=== PATIENT | male | born 1955 | race Caucasian/White ===

== ENCOUNTER 2017-07-22 00:52 | Emergency (ER) | payer MEDICAID ==
[2017-07-22] MEDS ORDERED: Ibuprofen 600 MG Tab PO ONE (01:13)
[2017-07-22] MEDS ORDERED: Iopamidol 755 Mg/ML 75 ML Bottle IV ONE (01:45)
--- NOTE | 2017-07-22 03:38 | EDM.PDOC ---
ED HPI GENERAL MEDICAL PROBLEM - General Chief Complaint: Back Pain or Injury Stated Complaint: MED BACK PAIN Time Seen by Provider: 07/22/17 00:52 Source of Information: Reports: Patient History Limitations: Reports: No Limitations - History of Present Illness INITIAL COMMENTS - FREE TEXT/NARRATIVE: 62 years old w m in prev healthy condition came to the due to sudden onset of pain at his right post lower chest wall. worse with deep inspiration, no trauma , no blood in urine, no N/V/D or dizziness. No other acute medical issues at this time. Onset: Today Onset Date: 07/21/17 Onset Time: 15:00 Duration: Hour(s):, Intermittent Location: Reports: Chest (right post chest) Quality: Reports: Ache, Burning, Dull Severity: Moderate Improves with: Reports: Rest Worsens with: Reports: Movement back Pain Score (Numeric/FACES): 3 - Related Data Allergies Allergy/AdvReac Type Severity Reaction Status Date / Time No Known Allergies Allergy Verified 07/22/17 01:10 Home Meds: Home Meds traMADol [Ultram] 50 mg PO Q6H PRN #15 tab 07/22/17 [Rx] Social & Family History - Tobacco Use Smoking Status *Q: Never Smoker - Recreational Drug Use Recreational Drug Use: No ED ROS GENERAL - Review of Systems Review Of Systems: See Below Constitutional: Reports: No Symptoms HEENT: Reports: No Symptoms Respiratory: Reports: No Symptoms Cardiovascular: Reports: No Symptoms Endocrine: Reports: No Symptoms GI/Abdominal: Reports: No Symptoms : Reports: No Symptoms Musculoskeletal: Reports: Back Pain Skin: Reports: No Symptoms Neurological: Reports: No Symptoms Psychiatric: Reports: No Symptoms Hematologic/Lymphatic: Reports: No Symptoms Immunologic: Reports: No Symptoms ED EXAM,LOWER BACK PAIN/INJURY - Physical Exam Exam: See Below Exam Limited By: No Limitations General Appearance: Alert, WD/WN, Mild Distress, Obese Eye Exam: Bilateral Eye: Normal Inspection Ears: Normal External Exam Nose: Normal Inspection Throat/Mouth: Normal Inspection Head: Atraumatic, Normocephalic Neck: Normal Inspection, Supple Respiratory/Chest: No Respiratory Distress, Lungs Clear, Normal Breath Sounds Cardiovascular: Normal Peripheral Pulses, Regular Rate, Rhythm GI/Abdominal: Normal Bowel Sounds (Male) Exam: Deferred Rectal (Males) Exam: Deferred Back Exam: Normal Inspection, Other (tender r post chest wall) Extremities: Normal Inspection Neurological: Alert, Normal Mood/Affect, Normal Dorsiflexion Psychiatric: Normal Affect, Normal Mood Skin Exam: Warm, Dry, Intact, Normal Color, No Rash Lymphatic: No Adenopathy Course - Vital Signs Text/Narrative:: 62 years old w m in prev healthy condition came to the due to sudden onset of pain at his right post lower chest wall. worse with deep inspiration, no trauma , no blood in urine, no N/V/D or dizziness. No other acute medical issues at this time. PE: Tender R low post chest wall Labs: Microcytic hematuria Imaging: CXR and CT abd/pelvis were NAD Impression: Pleurisi Tx: Ice, motrin Reexam: Improved Plan: D/C with instructions Last Recorded V/S: Last Vital Signs Temp 36.1 C 07/22/17 01:00 Pulse 68 07/22/17 02:45 Resp 18 07/22/17 02:45 BP 118/65 07/22/17 02:45 Pulse Ox 98 07/22/17 02:45 - Orders/Labs/Meds Orders: Active Orders 24 hr Category Date Time Status Cooling Warming Measures [RC] ASDIRECTED Care 07/22/17 01:13 Active Abdomen Pelvis wo Cont [CT] Stat Exams 07/22/17 01:56 Taken CXR [Chest 2V] [CR] Stat Exams 07/22/17 01:12 Taken Ice Bag [Ice Therapy] [OM.PC] Routine Oth 07/22/17 01:13 Ordered Labs: Laboratory Tests 07/22/17 Range/Units 01:22 Urine Color Yellow (YELLOW) Urine Appearance Clear (CLEAR) Urine pH 5.0 (5.0-6.5) Ur Specific [place] 1.025 (1.010-1.025) Urine Protein Negative (NEGATIVE) mg/dL Urine Glucose (UA) Normal (NEGATIVE) mg/dL Urine Ketones Negative (NEGATIVE) mg/dL Urine Occult Blood Moderate H (NEGATIVE) Urine Nitrite Negative (NEGATIVE) Urine Bilirubin Negative (NEGATIVE) Urine Urobilinogen Normal (NEGATIVE) mg/dL Ur Leukocyte Esterase Negative (NEGATIVE) Urine RBC 0-5 (0) Urine WBC 0-5 (0) Ur Squamous Epith Cells Rare (NS,R,O) Urine Bacteria Occasional H (NS) Urine Mucus Few H (NS) Meds: Medications Discontinued Medications Generic Name Dose Route Start Last Admin Trade Name Freq PRN Reason Stop Dose Admin Ibuprofen 600 mg 07/22/17 01:13 07/22/17 01:36 Motrin PO 07/22/17 01:14 600 mg ONETIME ONE Administration Iopamidol 75 ml 07/22/17 01:45 07/22/17 01:55 Isovue-370 (76%) IV 07/22/17 01:46 Not Given ONETIME ONE Departure - Departure Time of Disposition: 03:36 Disposition: Home, Self-Care 01 Condition: Good Clinical Impression: Pleurisy - Discharge Information Prescriptions: traMADol [Ultram] 50 mg PO Q6H PRN #15 tab PRN Reason: severe pain Instructions: Atelectasis, Adult, Constipation, Adult, Pleurisy Referrals: PCP,None [Primary Care Provider] - Forms: ED Department Discharge Additional Instructions: Please apply ice to affected area, please take ultram and Motrin 600 mg every 8 hours with food, please f/u, come back if your symptoms get worse acutely - My Orders Last 24 Hours: My Active Orders 07/22/17 01:12 CXR [Chest 2V] [CR] Stat 07/22/17 01:13 Cooling Warming Measures [RC] ASDIRECTED Ice Bag [Ice Therapy] [OM.PC] Routine 07/22/17 01:56 Abdomen Pelvis wo Cont [CT] Stat - Assessment/Plan Last 24 Hours: My Active Orders 07/22/17 01:12 CXR [Chest 2V] [CR] Stat 07/22/17 01:13 Cooling Warming Measures [RC] ASDIRECTED Ice Bag [Ice Therapy] [OM.PC] Routine 07/22/17 01:56 Abdomen Pelvis wo Cont [CT] Stat
[2017-07-22] MEDS ORDERED: traMADol 50 MG Tab PO ONE (03:42)
--- NOTE | 2017-07-28 12:07 | CR ---
INDICATION: Post chest pain pleurisy. CHEST: PA and lateral views of the chest were obtained 07/22/2017 and revealed suggestion of normal heart size with the mediastinum essentially unremarkable, as are the bony structures. There does appear to be some linear density posteriorly on the lateral view, which appears to be in the left lower lobe and may represent linear atelectasis. No definite consolidating pneumonia or effusion was seen. IMPRESSION: Appearance of linear density in the left lower lobe may represent fibrosis or linear atelectasis. No other finding to suggest an acute process was seen. If pulmonary embolus is suspected clinically, CT of the chest with contrast for CT angiography may be helpful. MTDD
== END 2017-07-22 03:45 | disposition home or self-care (01) ==
LOC: FB.ED 00:52
DX: R09.1 Pleurisy (principal)
CPT/HCPCS: 71020; 74176; 81001; 99284; A9270

== ENCOUNTER 2025-04-25 19:05 | Emergency (ER) | payer MEDICARE, OTHER | END 2025-04-25 20:15 | disposition home or self-care (01) | LOC: FB.ED 19:05 | DX: S81.011A Laceration without foreign body, right knee, initial encounter (principal); W01.111A Fall on same level from slipping, tripping and stumbling with subsequent striking against power tool or machine, initial encounter | CPT/HCPCS: 12002; 99282 ==

== ENCOUNTER 2025-05-13 09:49 | Emergency (ER) | payer MEDICARE, OTHER | END 2025-05-13 10:43 | disposition home or self-care (01) | LOC: FB.ED 09:49 | DX: L03.115 Cellulitis of right lower limb (principal); Z79.899 Other long term (current) drug therapy | CPT/HCPCS: 73560-RT; 99283 ==